=== PATIENT | female | born 1990 | race Caucasian/White ===

== ENCOUNTER 2018-10-26 12:36 | Emergency (ER) | payer BC | END 2018-10-26 13:25 | disposition home or self-care (01) | LOC: FER 12:36 ==

== ENCOUNTER 2023-02-07 10:13 | Emergency (ER) | payer BC ==
[2023-02-07 10:26] VITALS: BP 135/85; PULSE 73; RESP 18; TEMP 99; BMI 27.4
[2023-02-07 11:59] LABS: HEMATOCRIT 40.3 % (32.4-45.2); MCH 27.9 pg (25.7-33.7); MCHC 32.3 g/dl (32.0-36.0); MEAN CELL VOLUME 86.5 fl (80-96); MEAN PLT VOLUME 7.2 fl (7.5-11.1); PLATELET COUNT 246.1 10^3/uL (134-434); RBC 4.66 10^6/uL (3.60-5.2); RDW 13.7 % (11.6-15.6); WHITE BLOOD COUNT 8.6 10^3/uL (4.0-10.8)
[2023-02-07 12:07] LABS: ALBUMIN 4.1 g/dl (3.4-5.0); ALK PHOS 61 U/L (45-117); ANION GAP 9 MMOL/L (8-16); BILIRUBIN,TOTAL 0.2 mg/dl (0.2-1); BLOOD UREA NITROGEN 14.8 mg/dl (7-18); CALCIUM 8.9 mg/dl (8.5-10.1); CHLORIDE 103 mmol/L (98-107); CO2 24 mmol/L (21-32); CREATININE 0.6 mg/dl (0.6-1.3); GLUCOSE,RANDOM 89 mg/dl (74-106); POTASSIUM 4.5 mmol/L (3.5-5.1); SGOT/AST 14.5 U/L (15-37); SGPT/ALT 11.6 U/L (7-52); SODIUM 136 mmol/L (136-145); TOT PROT 6.4 g/dl (6.4-8.2)
[2023-02-07] MEDS ORDERED: ACETAMINOPHEN 325 MG TABLET (FP) PO ONE (13:54)
[2023-02-07] MEDS ORDERED: ACETAMINOPHEN 325 MG TABLET (FP) ONE (14:02)
== END 2023-02-07 14:11 | disposition home or self-care (01) ==
LOC: FER 10:13
DX: R07.81 Pleurodynia (principal); R09.81 Nasal congestion; R05.9 Cough, unspecified; R50.9 Fever, unspecified; R06.02 Shortness of breath; Z20.822 Contact with and (suspected) exposure to COVID-19
CPT/HCPCS: 0241U-QW; 36415; 71045-TC-FY; 80053; 84484; 85027; 85379; 93005; 99285-25